=== PATIENT | male | born 1935 | race Caucasian/White ===

== ENCOUNTER 2016-09-01 17:09 | Emergency (ER) | payer MEDICARE, MEDICAID ==
[2016-09-01] VITALS (8 sets, daily range): BP systolic 59–146; BP diastolic 29–54
[~2016-09-01] VITALS: Ht 165.1 cm; Wt 63.5 kg
[2016-09-01] MEDS ORDERED: Metoprolol 5mg/5ml Inj IVP SCH (18:00)
[2016-09-01 18:14] LABS: WHITE BLOOD COUNT 8.9 K/UL (4.8-10.8)
[2016-09-01 18:15] LABS: MEAN CORPUSCULAR HEMOGLOBIN 29.9 PG (27.0-31.0); MEAN CORPUSCULAR HGB CONC 32.4 G/DL (32.0-36.0); MEAN CORPUSCULAR VOLUME 92 FL (80-99); MEAN PLATELET VOLUME 6.8 FL (6.5-10.1); PLATELET COUNT 188 K/UL (150-450); RED BLOOD COUNT 2.52 M/UL (4.70-6.10); RED CELL DISTRIBUTION WIDTH 15.9 % (11.6-14.8)
[2016-09-01 18:24] LABS: REFLEX LACTIC ACID YES OR NO YES
[2016-09-01 18:27] LABS: TROPONIN I < 0.30 ng/mL (<=0.30)
[2016-09-01 18:40] LABS: ALANINE AMINOTRANSFERASE 5 U/L (3-41); ALBUMIN/GLOBULIN RATIO 0.6 (1.0-2.7); ANION GAP 16 (5-15); ASPARTATE AMINO TRANSFERASE 32 U/L (5-40); CALCIUM 8.4 mg/dL (8.6-10.2); CARBON DIOXIDE 28 mEQ/L (20-30); CHLORIDE 91 mEQ/L (98-107); CREATININE 2.2 mg/dL (0.7-1.2); HEMOLYSIS 6; MAGNESIUM 1.8 mg/dL (1.7-2.5); PHOSPHORUS 3.2 mg/dL (2.5-4.8); POTASSIUM 4.3 mEQ/L (3.4-4.9); SODIUM 135 mEQ/L (135-145); TOTAL PROTEIN 7.3 g/dL (6.6-8.7)
[2016-09-01 18:41] LABS: CKMB < 1.5 ng/mL (< 6.7)
[2016-09-01] MEDS ORDERED: Amiodarone 150mg/ml 3ml Amp IVP ONE (19:00)
[2016-09-01 19:54] LABS: BAND NEUTROPHILS % (MANUAL) 2 % (0-8); EOSINOPHILS % (MANUAL) 1 % (0-3); LYMPHOCYTES % (MANUAL) 28 % (20-45); NEUTROPHILS % (MANUAL) 61 % (45-75); TOTAL CELLS COUNTED 100
[2016-09-01 19:56] LABS: ANISOCYTOSIS 1+; BASOPHILS % (MANUAL) 0 % (0-2); PLATELET ESTIMATE ADEQUATE; PLATELET MORPHOLOGY NORMAL; POLYCHROMASIA 1+
[2016-09-01] MEDS ORDERED: Levophed 4mg/4mL Inj IV ONE (20:06)
[2016-09-01] MEDS ORDERED: Surgicel 4in x 8in TOPIC ONE (20:25)
[2016-09-01] MEDS: DOPamine 400mg/250ml 250 ML IV SCH ×2 (20:35→20:36)
--- NOTE | 2016-09-01 20:46 | Cardiology Progress Note ---
Assessment/Plan Assessment/Plan hypotension progressive tachy unresponsive to therapy afib not on anitcoagualtion amita cardiopulm arrest hemoptysis cm mod - sever as (possible sever with low output state) cad aortic aneurysm s/p repair TEVAR twice complicated by leak and persistent infection on redo esrd on hemodialysis since jun 2016 anemia empiric abx vent support vent support vasopressor dopamine adn Levophed hr seem ok but bp continue to be low blood transfusion family request transfusion but at this time hemodynamically is unstable yet dictated Objective Last 24 Hour Vital Signs Date Time Temp Pulse Resp B/P Pulse Ox O2 Delivery O2 Flow Rate FiO2 09/01/16 20:36 67/44 09/01/16 20:27 74 16 100 09/01/16 20:27 74 16 Mechanical Ventilator 100 09/01/16 19:49 73 17 146/40 Mechanical Ventilator 100 09/01/16 19:19 50 22 71/35 100 Room Air 09/01/16 18:10 97.5 102 20 71/49 100 Room Air 09/01/16 17:50 139 70/54 09/01/16 17:09 132 31 70/54 98 Room Air 09/01/16 16:59 99.3 148 20 88/42 99 Room Air Laboratory Tests Test 09/01/16 17:35 09/01/16 18:50 White Blood Count 8.9 K/UL (4.8-10.8) Red Blood Count 2.52 M/UL (4.70-6.10) L Hemoglobin 7.6 G/DL (14.2-18.0) L Hematocrit 23.3 % (42.0-52.0) L Mean Corpuscular Volume 92 FL (80-99) Mean Corpuscular Hemoglobin 29.9 PG (27.0-31.0) Mean Corpuscular Hemoglobin Concent 32.4 G/DL (32.0-36.0) Red Cell Distribution Width 15.9 % (11.6-14.8) H Platelet Count 188 K/UL (150-450) Mean Platelet Volume 6.8 FL (6.5-10.1) Neutrophils (%) (Auto) % (45.0-75.0) Lymphocytes (%) (Auto) % (20.0-45.0) Monocytes (%) (Auto) % (1.0-10.0) Eosinophils (%) (Auto) % (0.0-3.0) Basophils (%) (Auto) % (0.0-2.0) Differential Total Cells Counted 100 Neutrophils % (Manual) 61 % (45-75) Lymphocytes % (Manual) 28 % (20-45) Monocytes % (Manual) 8 % (1-10) Eosinophils % (Manual) 1 % (0-3) Basophils % (Manual) 0 % (0-2) Band Neutrophils 2 % (0-8) Platelet Estimate Adequate Platelet Morphology Normal Polychromasia 1+ Anisocytosis 1+ Sodium Level 135 mEQ/L (135-145) Potassium Level 4.3 mEQ/L (3.4-4.9) Chloride Level 91 mEQ/L (98-107) L Carbon Dioxide Level 28 mEQ/L (20-30) Anion Gap 16 (5-15) H Blood Urea Nitrogen 17 mg/dL (7-23) Creatinine 2.2 mg/dL (0.7-1.2) H Estimat Glomerular Filtration Rate mL/min (>60) Glucose Level 131 mg/dL (74-106) H Lactic Acid Level 2.30 mmol/L (0.66-2.22) H 4.40 mmol/L (0.66-2.22) H Calcium Level 8.4 mg/dL (8.6-10.2) L Phosphorus Level 3.2 mg/dL (2.5-4.8) Magnesium Level 1.8 mg/dL (1.7-2.5) Total Bilirubin 0.2 mg/dL (0.0-1.2) Aspartate Amino Transf (AST/SGOT) 32 U/L (5-40) Alanine Aminotransferase (ALT/SGPT) 5 U/L (3-41) Alkaline Phosphatase 56 U/L (40-129) Total Creatine Kinase 13 U/L (38-174) L Creatine Kinase MB < 1.5 ng/mL (< 6.7) Creatine Kinase MB Relative Index Troponin I < 0.30 ng/mL (<=0.30) Pro-B-Type Natriuretic Peptide > 77044 pg/mL (0-450) H Total Protein 7.3 g/dL (6.6-8.7) Albumin 3.0 g/dL (3.5-5.2) L Globulin 4.3 g/dL Albumin/Globulin Ratio 0.6 (1.0-2.7) CHAVEZ SALCIDO Sep 01, 2016 20:45
[2016-09-01] MEDS ORDERED: Piperacillin/Tazobactam 3.375 GM in NS 110 ML IVPB ONE (21:00)
[2016-09-01] MEDS ORDERED: Vancomycin 1 GM in NS 275 ML IVPB ONE (21:00)
--- NOTE | 2016-09-01 21:11 | Emergency Room Report ---
History of Present Illness General Chief Complaint: Generalized Weakness Source: Patient, Family Member, Medical Record, EMS Present Illness HPI [id number] sent by Chronic Disease Manager for hypotension following scheduled HD. Dr Caraballo stated patient's BP and vital signs were stable prior to start of hemodialysis including SBP 110. After 1.5L taken out from dialysis, patient had hypotension. 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 Known anemia. Upon arrival, patient's son repeatedly requesting transfer to [facility]. They had preferred going to [facility] ED but they have been on SAT all day. I had multiple conversations with patient's son that we cannot safely transfer an unstable patient (BP was 70/40 and 60/30 with Atrial Fib with RVR upon arrival from Dialysis). Allergies: Coded Allergies: No Known Allergies (Unverified , 09/01/16) Patient History Past Medical History: other - See HPI Past Surgical History: other - See HPI Pertinent Family History: unable to obtain Social History: Denies: alcohol use, drug use, smoking Immunizations: UTD Reviewed Nursing Documentation: PMH: Agreed, PSxH: Agreed Nursing Documentation-PMH Hx Hypertension: Yes Hx Dialysis: Yes - CKD, ESRD, DIALYSIS T, TH, SAT Review of Systems All Other Systems: negative except mentioned in HPI Physical Exam Vital Signs Date Time Temp Pulse Resp B/P Pulse Ox O2 Delivery O2 Flow Rate FiO2 09/01/16 16:59 99.3 148 20 88/42 99 Room Air 09/01/16 19:49 100 Sp02 EP Interpretation: reviewed, abnormal General Appearance: normal inspection, no apparent distress, alert, GCS 15, non -toxic, mild distress, cachetic, other - Pale Head: normocephalic, atraumatic Eyes: bilateral eye EOMI, bilateral eye PERRL ENT: normal ENT inspection, hearing grossly normal, normal voice Neck: normal inspection, full range of motion, supple, no bony tend Respiratory: normal inspection, lungs clear, normal breath sounds, no respiratory distress, no retraction, no wheezing, accessory muscle use, crackles , speaking full sentences, other - Decreased breath sounds on left side. Crackles on right Cardiovascular #1: no edema, tachycardia, irregularly irregular Gastrointestinal: normal inspection, normal bowel sounds, non tender, soft, no guarding, no hernia Genitourinary: no CVA tenderness Musculoskeletal: normal inspection, back normal, normal range of motion, Sha' s Sign negative Neurologic: normal inspection, alert, oriented x3, responsive, bathhouse keeper III-XII nml as tested, motor strength/tone normal, speech normal Psychiatric: normal inspection, judgement/insight normal, mood/affect normal Skin: normal inspection, normal color, no rash, warm/dry Lymphatic: normal inspection Procedures Critical Care Time Critical Care Time CC time 90 minutes includes time spent bedside to run 2 codes/CPR, frequent discussions with patient, family, consulting Cardiology, review of labs/imaging from here, review of patient's medical records from [facility], titrating pressor support with levophed/dopamine Does not include procedure time Central Line Central Line : Consent: Emergent Central Line Lumen: triple Maximal Sterile Barrier Tech: yes cap, yes mask, yes sterile gown, yes sterile gloves, yes large sterile sheet, yes hand hygiene, yes chlorhexidine prep No Max Barrier Tech Because: emergency insertion Central Line Postion: femoral (R) Complications: none Central Line Post Position: sutured, good blood return Attempts: One Patient Tolerated: Well Complications: None CPR/Code Blue CPR/Code Blue Narrative 1925: Patient noted to be altered by son. Patient had apenic breathing, was minimally responsive. No pulse was palpated CPR was started. A total of 7 epinephrine and 2 atropine and 1 calcium and 1 bicarb were given. During CPR, patient was given BVM assisted ventilation by the RT and she noted blood coming from patient's mouth after CPR was started During the code, I intubated the patient (see procedure note) for airway protection. O2 sat was 100% after intubation. 1942: Patient had ROSC. Pulse palpated. Organized cardiac contractility seen on bedside cardiac echo. Patient was connected to the ventilator. I placed a right femoral central line Dopamine was maxed out without significant improvement in BP Levophed was also started for pressure support 2116: Patient was noted to amita down and lost pulse. Ventricular Fib was noted on monitor and received 1 shock of 200J and 1 epinephrine Asystole was then noted on monitor and CPR was restarted 2119: Patient's brother arrived, stated patient is DNR and "never wanted this" and "told the doctor at [facility] that if his pulse stopped, to 'let me go.' " At this time resuscitation efforts were requested to be terminated by patient's brother, son and other present family members. Intubation Intubation : Consent: Emergent Intubation Method: orotracheal Tube Size (cm): 7.5 Breath Sounds after Intubation: equal Intubation Complications: no complications Post Intubation Xray: Yes Attempts: One Patient Tolerated: Well Complications: None Progress Significant bleeding noted from nose/mouth during CPR and prior to intubation During intubation, significant blood noted in mouth - visualized on glidescope. Needing continuous suction to clear the field Medical Decision Making Medicare Attestation I Williams Castro MD hereby attest that the medical record entry for date of service, 05/25/16 accurately reflects signatures/notations that I made in my capacity as MD when I treated/diagnosed the above listed Medicare beneficiary. I attest that this information is true, accurate and complete to the best of my knowledge. I understand that any falsification, omission, or concealment of material fact may subject me to administrative, civil, or criminal liability. This patient warrants hospital admission for extreme of age and has a condition that cannot be treated as outpatient. Diagnostic Impression: Primary Impression: Hypotension Qualified Codes: I95.9 - Hypotension, unspecified Additional Impressions: Cardiac arrest Atrial fibrillation with rapid ventricular response Anemia Qualified Codes: D64.9 - Anemia, unspecified CKD (chronic kidney disease), stage V UTI (urinary tract infection) Qualified Codes: N30.01 - Acute cystitis with hematuria ER Course Patient with hypotension 70/30 with HR 140/150 on triage. Afebrile. ECG shows Atrial Fib with RVR and LBBB. [place] [facility] [place] I have asked throw out clerk to try to find patient info from [place]. Additional 500cc bolus given in ED with no improvement in BP. Patient already on Coreg so was given trial of Toprol 5mg IV with improvement in HR from 130/140 to 110 but remained hypotensive. Labs showed Hb 7.6. Troponin 0. No leuks. Elevated SerumCr. BNP 7000. UA with multiple WBCs, bacteria CXR with cardiomegaly. ?pulm congestion. Shadowing vs consolidation on left side of lung. No PTX. 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 Possibly Sepsis given history of MSSA bacteremia. Empiric Abx given. Blood and Urine Cx sent/ pending. - Low Hb. Transfusion of 2U PRBC ordered. Coags, T&S pending - Will start dopamine for pressure support peripherally and place Central line - I consulted Dr Pagan for Cardiology Cx given complexity of the case. He recommended Amiodarone 150mg which converted patient to NSR, HR 50, but patient remains hypotensive. - Considering dissection in differential vs aneurysm leak vs massive PE - would like to do CTA Chest but patient unstable to go to CT. - If massive PE or AMI, would be preferable to give thrombolytics put patient is hypotensive, possibly bleeding. Would be detrimental to give thrombolytics in such a patient. See Code Blue/CPR notes for next chain of events. Patient's brother arrived 920pm, stated patient did not wish to be resuscitated if his heart stopped. Stated paperwork "is at [facility]." At this time patient's brother and his son asked us to stop resuscitation efforts as these were the patient's known wishes. Patient pronounced at 920pm EKG Diagnostic Results Rate: tachycardiac, other - Atrial fib with RVR ST Segments: other - LBBB ASA given to the pt in ED: No Rhythm Strip Diag. Results EP Interpretation: yes Rate: 140 Rhythm: other - Multiple PVCs Chest X-Ray Diagnostic Results EP Interpretation: Yes Findings: no pneumothorax, other - Cardiomegaly, ?consoldiation left lung. Graft on aorta Number of Views: 1 Other X-Ray Diagnostic Results Other X-Ray Diagnostic Results : X-Ray Ordered: Chest xray EP Interpretation: Yes Findings: other - ET Tube in satisfactory position. Right sided pulm congestion worsened Number of Views: 1 Last Vital Signs Date Time Temp Pulse Resp B/P Pulse Ox O2 Delivery O2 Flow Rate FiO2 09/01/16 20:42 71 23 100 09/01/16 20:42 Mechanical Ventilator 09/01/16 20:36 67/44 09/01/16 19:19 100 09/01/16 18:10 97.5 Status: improved Disposition: Condition: Critical Referrals: NOT CHOSEN ROSELIA/,REFERRING (PCP) WILLIAMS CASTRO M.D. Sep 01, 2016 21:11
[2016-09-01 21:54] LABS: APPEARANCE,URINE CLOUDY
[2016-09-01 21:55] LABS: KETONES,URINE NEGATIVE (NEGATIVE); LEUKOCYTE ESTERASE ,URINE 3+ (NEGATIVE); NITRITE,URINE NEGATIVE (NEGATIVE); PH,URINE 7 (4.5-8.0); PROTEIN,URINE 4+ (NEGATIVE); UROBILINOGEN,URINE NORMAL MG/DL (0.0-1.0)
[2016-09-01 22:15] LABS: BACTERIA,URINE MANY /HPF; WBC,URINE 40-60 /HPF (0 - 0)
[2016-09-02 00:13] VITALS: BP 0/0
--- NOTE | 2016-09-02 04:58 | Consultation ---
DATE OF CONSULTATION: 09/01/2016 CARDIOLOGY CONSULTATION: CONSULTING PHYSICIAN: Al Anne M.D. REASON FOR REFERRAL: Evaluation and management of hypotension and tachycardia. HISTORY OF PRESENT ILLNESS: I was urgently called by the emergency physician regarding this patient, who has been in the emergency room after he had dialysis, at which time he became hypotensive. Here in the emergency room, he has been having blood pressures in the 150s to 160s and the blood pressure dropping into the 60s. Medications that had been administered were not successful. For urgent consultation, I discussed with the emergency physician and recommended consideration for amiodarone to be given while I drive to the hospital. On my arrival here, the amiodarone, I was told, was given. Heart rates in the 112 and 116 range. Blood pressure still in the 70s to 60s range and subsequently became bradycardic and hypotensive. His son tells me that his eyes rolled back for a second and he became unresponsive. There is some records I was able to access from [facility] to obtain information, some I gathered from talking with the patient's son. It appears that he has had a problem with the aortic aneurysm approximately five years ago and that was repaired, but ended up leaking and was infected and apparently got repaired again about three years ago and he has had problems with infection ever since requiring intravenous antibiotics on a regular basis now with his dialysis sessions. He has had an AV fistula placement, has been mature enough and has been concerned about possibility of infection and they have been giving him intravenous antibiotics. Today, apparently during dialysis, we were not sure what happened. His blood pressure did drop. He received some fluid back and was sent through the emergency room to [facility]. In either case, on my arrival to the bedside, the patient is hypotensive, bradycardic. Lokesh Blanton was called. Basic life support was started. The patient received aspirin and epinephrine and advanced in the cardiopulmonary resuscitation. Eventually, heart rate and blood pressure did improve and the blood pressure post resuscitation initially in the 180s. The blood pressure did continue to drop, however, again back to low levels and he has been started on dopamine and we just added Levophed for blood pressure control. His data is becoming slowly available. I did discuss the case briefly with the science instructor covering for and as I mentioned I have gone through some of the records at [facility], looks like he has had a history of anemia, for which he received blood transfusion back in June of two units of packed red cells. His hemoglobin increasing from 8 to 10.7. His hemoglobin at this time is much lower than that. He has not received any blood transfusion according to the son, but has received some hormonal therapy at the dialysis center, which I suspect is Epogen. His son indicates that he has been doing relatively well recently, even he has been in his house recently and he has been taken off anticoagulation because it was felt to be too risky for him and he has been on Coreg that he has been taking on a regular basis. MEDICATIONS: Medication list that has been provided includes aspirin 81 mg, Lipitor 80 mg, Coreg 12.5 mg twice daily, vitamin D 2000, Celexa 10 mg daily, vitamin B12 one tablet daily, cyclobenzaprine 5 mg nightly p.r.n., methimazole 5 mg three times a day, Zofran 4 mg twice daily, Os-Sumit, Protonix, tramadol, Vicodin, Lasix, and Neurontin. Apparently, he receives Lasix 80 mg twice a day and Neurontin 100 mg nightly. ALLERGIES: He is not allergic to any medication. SOCIAL HISTORY: No smoking or alcohol history is obtained. PHYSICAL EXAMINATION: GENERAL: Shows an elderly gentleman, on a mechanical ventilator. Not communicating. Not responsive. VITAL SIGNS: His latest blood pressure is 63 and his heart rate is in the 70s. He is on Levophed that was started a few minutes ago as well as maximum dose of dopamine 20 mcg. LUNGS: There is bilateral breath sounds by the ventilator. HEART: Heart sounds are regular. ABDOMEN: Soft and nontender. EXTREMITIES: There is no edema. NEUROLOGIC: He is unresponsive. This is status post advanced cardiac life support. LABORATORY AND DIAGNOSTIC DATA: The EKG shows left bundle-branch conduction defect originally with atrial fibrillation and tachycardia in the 130s. His labs showed a white count of 8.9 with a hemoglobin of 7.6 and a platelet count of 188,000. Sodium is 135, potassium 4.2, chloride 91, bicarbonate 28, BUN 17, creatinine 2.2, and glucose of 131. His lactic acid level was 2.3 and subsequently 4.4. Troponin less than 0.03. ProBNP greater than 70,000. He has had some blood gases. I do not have the blood gas report here. After his resuscitation, his pH was 7.3. Unfortunately, I do not have the CO2, but his pO2 was in the 140s initially. ASSESSMENT AND PLAN: 1. Hypotension. 2. Tachycardia and atrial fibrillation with rapid ventricular response initially, now with a controlled heart rate. 3. Status post cardiopulmonary arrest. 4. Hemoptysis. 5. History of dilated cardiomyopathy. 6. Moderate to severe mitral regurgitation. 7. Persistent bacteremia of some sort per history from son. 8. End-stage renal disease, on hemodialysis. 9. Anemia. I have put a call on to , his partners on-call. I am not very familiar with the patient. The patient has been not doing well here. I have appraised the patient's family members of his poor status at the present time. He has been started on Levophed as well as he is continued on Levophed and dopamine. His heart rate is steadily in the 70s. His blood pressure unfortunately does not seem to respond to therapy. Blood has been ordered by the emergency room physician for type and cross and transfusion and is pending. I sonogram here in the emergency room that is quality. His LV function, at least the part that I did see, appears to be quite poor, but there is function, mainly in the lateral leads. The rest of his LV appeared to be at least poor. The patient should be continued on pressor support. The patient's family members have requested transfer to another facility because he is hemodynamically quite unstable at the present time and I am are sure how fair. I will put him on a transfer list for [facility] if an accepting physician is available or at [facility] should he becomes hemodynamically stable enough to tolerate the transfer and accepting physician is available. Total duration of this critical care note is probably more than an hour and a half for this patient's critical situation, he remains critically ill and will . Al Anne M.D. DR: Mikey JOB#: [id number] CC:
--- NOTE | 2016-09-02 11:16 | Diagnostic Imaging Report ---
Indication: SOB Technique: One view of the chest Comparison: none Findings: The heart is enlarged. There is a thoracic aortic endograft in place. There is a right jugular tunneled dialysis catheter, tip at the level of mid superior vena cava. There is equivocal mild interstitial congestion. The pleural spaces are clear Impression: Cardiomegaly Possible mild interstitial congestion
--- NOTE | 2016-09-02 12:01 | Diagnostic Imaging Report ---
Indication: Post intubation Technique: One view of the chest Comparison: 2 hours earlier Findings: Interim endotracheal intubation, endotracheal tube tip in good position approximately 6 cm above the natalie. There is interim marked worsening of bilateral pulmonary edema, particular the right, where extensive mixed interstitial and alveolar infiltrates versus edema are present. Tunneled dialysis catheter, thoracic aortic endograft, thoracic aortic aneurysm are again demonstrated. There are cutaneous pacemaker paddles overlying the patient. There may be a small left pleural effusion Impression: Fracture endotracheal intubation Over 2 hours, heart worsening of pulmonary edema, particularly on the right
[2016-09-02 13:48] LABS: OTHERS PATHOLOGIST COMMENT
== END 2016-09-02 00:15 | disposition expired ==
LOC: EDBD 17:09 → EMR 17:38 → ICU 17:53 → UNDOADMIN 17:53 → EDBEDREQSVC 19:20 → EDBEDREQ 20:08 → EMR 09-02 00:15
DX: I95.9 Hypotension, unspecified (principal); I46.9 Cardiac arrest, cause unspecified; I12.0 Hypertensive chronic kidney disease with stage 5 chronic kidney disease or end stage renal disease; N18.6 End stage renal disease; Z99.2 Dependence on renal dialysis; I48.91 Unspecified atrial fibrillation; D64.9 Anemia, unspecified; I44.7 Left bundle-branch block, unspecified; N39.0 Urinary tract infection, site not specified
CPT/HCPCS: 31500; 36415; 71010; 80053; 81003; 82550; 82553; 83605; 83735; 83880; 84100; 84484; 85007; 85025; 86850; 86900; 86901; 86920; 87040; 87086; 92950; 93005; 94002; 94664; 96360; 96374; 96375; 99291; J0282; J1265